=== PATIENT | female | born 1980 | race Caucasian/White ===

== ENCOUNTER 2019-10-24 10:35 | Emergency (ER) | payer OTHER, BC ==
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
[2019-10-24 14:33] VITALS: BP 129/81; PULSE 93
== END 2019-10-24 11:52 | disposition home or self-care (01) ==
LOC: VM.ED 10:35
DX: S80.11XA Contusion of right lower leg, initial encounter (principal); F41.9 Anxiety disorder, unspecified; F32.9 Major depressive disorder, single episode, unspecified; Z79.899 Other long term (current) drug therapy; Z88.8 Allergy status to other drugs, medicaments and biological substances; V89.2XXA Person injured in unspecified motor-vehicle accident, traffic, initial encounter
CPT/HCPCS: 73590-RT; 99284-25

== ENCOUNTER 2019-12-11 18:41 | Emergency (ER) | payer OTHER, BC ==
[2019-12-11 19:20] VITALS: BP 127/86; PULSE 91
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
== END 2019-12-11 20:00 | disposition home or self-care (01) ==
LOC: VM.ED 18:41
DX: S67.194A Crushing injury of right ring finger, initial encounter (principal); F41.9 Anxiety disorder, unspecified; F32.9 Major depressive disorder, single episode, unspecified; F17.210 Nicotine dependence, cigarettes, uncomplicated; Z88.8 Allergy status to other drugs, medicaments and biological substances; Z79.899 Other long term (current) drug therapy; V83.9XXA Unspecified occupant of special industrial vehicle injured in nontraffic accident, initial encounter
CPT/HCPCS: 73140-F8; 99283

== ENCOUNTER 2021-10-12 22:10 | Emergency (ER) | payer OTHER ==
[2021-10-12 23:01] VITALS: BP 137/97; PULSE 98
== END 2021-10-12 23:13 | disposition home or self-care (01) ==
LOC: VM.ED 22:10
DX: M62.830 Muscle spasm of back (principal); Z88.8 Allergy status to other drugs, medicaments and biological substances
CPT/HCPCS: 81000; 99284

== ENCOUNTER 2021-10-14 07:02 | Day surgery (SDC) | payer BC, OTHER ==
[~2021-10-14 07:02] MED LIST: Lactated Ringers 1,000 ML IV SCH
[2021-10-14] MEDS ORDERED: fentaNYL 100 MCG/2 ML SDV ONE (08:06)
[2021-10-14] MEDS ORDERED: Propofol 200 MG/20 ML SDV ONE ×2 (08:06→09:21)
[2021-10-14] MEDS ORDERED: Ondansetron 4 MG/2 ML SDV ONE (08:09)
[2021-10-14] MEDS ORDERED: Nalbuphine 10 MG/1 ML Vial IVPUSH PRN (09:41)
[2021-10-14 10:11] VITALS: BP 119/79; PULSE 67
[2021-12-03] MEDS ORDERED: Lactated Ringers 1,000 ML IV SCH (07:00)
== END 2021-10-14 10:50 | disposition home or self-care (01) ==
LOC: VM.SDS 07:02
PROVIDERS: ATTEND Family Medicine
DX: K64.8 Other hemorrhoids (principal); F41.8 Other specified anxiety disorders; F17.210 Nicotine dependence, cigarettes, uncomplicated; F10.20 Alcohol dependence, uncomplicated; E66.01 Morbid (severe) obesity due to excess calories; Z68.30 Body mass index [BMI] 30.0-30.9, adult; Z91.018 Allergy to other foods; Z91.048 Other nonmedicinal substance allergy status; Z98.890 Other specified postprocedural states; Z79.899 Other long term (current) drug therapy
CPT/HCPCS: 81025; J2405; J2704; J3010; J7120

== ENCOUNTER 2023-02-20 16:59 | Emergency (ER) | payer OTHER ==
[2023-02-20 17:37] VITALS: PULSE 88
[2023-02-20 18:53] VITALS: BP 134/87
== END 2023-02-20 18:25 | disposition home or self-care (01) ==
LOC: VM.ED 16:59
DX: S90.32XA Contusion of left foot, initial encounter (principal); F17.210 Nicotine dependence, cigarettes, uncomplicated; Z91.018 Allergy to other foods; Z88.8 Allergy status to other drugs, medicaments and biological substances; Z79.899 Other long term (current) drug therapy; W23.1XXA Caught, crushed, jammed, or pinched between stationary objects, initial encounter; Y92.89 Other specified places as the place of occurrence of the external cause; Y99.0 Civilian activity done for income or pay
CPT/HCPCS: 73630-LT; 99283

== ENCOUNTER 2023-04-13 02:35 | Observation (INO) | payer OTHER ==
[2023-04-13] MEDS ORDERED: Naloxone 0.4 MG/ML SDV IVPUSH PRN (02:55)
[2023-04-13] MEDS ORDERED: Sodium Chloride 0.9% 1,000 ML IV ONE ×2 (02:55→04:10)
[2023-04-13] MEDS ORDERED: Ondansetron 4 MG/2 ML SDV IVPUSH ONE (02:55)
[2023-04-13] MEDS ORDERED: HYDROmorphone 1 MG/ML Syringe IVPUSH ONE ×2 (02:55→03:27)
[2023-04-13 03:14] LABS: BASOPHILS ABSOLUTE AUTO 0.1 x10^3/uL (0.0-0.2); BASOPHILS PERCENT AUTO 0.4 % (0.2-1.2); EOSINOPHILS ABSOLUTE AUTO 0.1 x10^3/uL (0.0-0.5); EOSINOPHILS PERCENT AUTO 0.8 % (0.0-4.0); HEMATOCRIT 46.6 % (33.0-47.0); IMMATURE GRAN ABSOLUTE AUTO 0.01 x10^3/uL (0.00-0.07); LYMPHOCYTES ABSOLUTE AUTO 2.5 x10^3/uL (1.0-4.8); MEAN CORPUSCULAR HEMOGLOBIN 29.6 pg (26.0-32.0); MEAN CORPUSCULAR HGB CONC 34.3 g/dL (32.0-36.0); MEAN CORPUSCULAR VOLUME 86.3 fL (78.0-93.0); MONOCYTES ABSOLUTE AUTO 0.8 x10^3/uL (0.0-0.8); MONOCYTES PERCENT AUTO 6.2 % (2.0-11.0); NEUTROPHILS ABSOLUTE AUTO 9.6 x10^3/uL (1.8-7.7); NEUTROPHILS PERCENT AUTO 73.5 % (50.0-80.0); PLATELET COUNT,PLT 328 x10^3/uL (130-400)
[2023-04-13 03:17] LABS: APPEARANCE,URINE SLIGHTLY CLOUDY (CLEAR); BILIRUBIN,URINE NEGATIVE (NEGATIVE); COLOR,URINE YELLOW (YELLOW); GLUCOSE,URINE NEGATIVE (NEGATIVE); KETONES,URINE NEGATIVE (NEGATIVE); OCCULT BLOOD,URINE MODERATE (NEGATIVE); PH,URINE 5.5 (5.0-8.0); PROTEIN,URINE 30 mg/dL (NEGATIVE)
[2023-04-13 03:18] LABS: LEUKOCYTE ESTERASE,URINE TRACE (NEGATIVE); NITRITE,URINE NEGATIVE (NEGATIVE); UROBILINOGEN,URINE 0.2 EU/dL (0.2)
[2023-04-13 03:29] LABS: BACTERIA,URINE FEW /HPF (NOT SEEN); HYALINE CASTS,URINE RARE; MUCUS,URINE NOT SEEN /LPF (NOT SEEN); RBC,URINE 0-5 /HPF (NOT SEEN); SQUAMOUS EPITHELIAL CELLS,UR MODERATE /HPF (NOT SEEN); WBC,URINE 0-5 /HPF (NOT SEEN)
[2023-04-13 03:35] LABS: A/G RATIO 1.08; ALANINE AMINOTRANSFERASE,ALT 22 U/L (14-59); ALBUMIN 4.1 g/dL (3.4-5.0); ALKALINE PHOSPHATASE 112 U/L (46-116); ASPARTATE AMNIOTRANSFERASE,AST 13 U/L (15-37); BILIRUBIN TOTAL 0.4 mg/dL (0.2-1.0); BLOOD UREA NITROGEN,BUN 10 mg/dL (7-18); CARBON DIOXIDE,CO2 26 mmol/L (21-32); CHLORIDE,CL 103 mmol/L (98-107); CREATININE 0.8 mg/dL (0.55-1.02); GLUCOSE RANDOM 134 mg/dL (70-99); LIPASE 21 U/L (19-71); POTASSIUM,K 3.1 mmol/L (3.5-5.1); PROTEIN TOTAL,TP 7.9 g/dL (6.4-8.2); SODIUM,NA 142 mmol/L (136-145)
[2023-04-13 03:36] LABS: ANION GAP 16.1 mmol/L (5-15); C-REACTIVE PROTEIN < 0.50 mg/dL (<=0.50); ESTIMATED GFR 94 mL/min (>=60)
[2023-04-13] MEDS ORDERED: Ketorolac 30 MG/ML SDV IVPUSH ONE (03:51)
[2023-04-13] MEDS ORDERED: Acetaminophen 325 MG Tab PO PRN (05:06)
[2023-04-13] MEDS ORDERED: Sodium Chloride 0.9% 10 ML Syringe FLUSH PRN (05:06)
[2023-04-13] MEDS ORDERED: Sodium Chloride 0.9% 1,000 ML IV SCH (05:15)
[2023-04-13] MEDS ORDERED: HYDROmorphone 0.5 MG/0.5 ML Syringe IVPUSH PRN (05:30)
[2023-04-13] MEDS: Tamsulosin 0.4 MG Cap.ER PO SCH ×4 (06:07→09:23)
[2023-04-13] MEDS ORDERED: Ondansetron 4 MG/2 ML SDV IV PRN (07:00)
[2023-04-13] MEDS ORDERED: HYDROmorphone 1 MG/ML Syringe IVPUSH PRN (08:33)
[2023-04-13] MEDS ORDERED: Ketorolac 30 MG/ML SDV IVPUSH PRN (10:00)
[2023-04-13 10:10] VITALS: BP 131/86
[2023-04-13] MEDS ORDERED: Bisacodyl 10 MG Supp RECTAL ONE (11:00)
[2023-04-13] MEDS ORDERED: Nicotine 14 MG/24 Hr Patch TRDERM SCH (11:00)
[2023-04-13 12:54] VITALS: PULSE 88
== END 2023-04-13 12:45 | disposition home or self-care (01) ==
LOC: VM.ED 02:35 → VM.MS 04:54 → UNDOADMOB 04:54
PROVIDERS: ADMIT Physician Assistant Medical; ATTEND Physician Assistant Medical
DX: N20.0 Calculus of kidney (principal); F17.200 Nicotine dependence, unspecified, uncomplicated; Z79.899 Other long term (current) drug therapy
CPT/HCPCS: 74176; 80053; 81001; 83690; 85025; 86140; 87086; 96361; 96374; 96375; 96376; 99285-25; A9270-GY; G0378; J1170; J1885; J2405; J7030

== ENCOUNTER 2024-12-05 17:06 | Emergency (ER) | payer SELFPAY | END 2024-12-05 17:26 | disposition left against medical advice (07) | LOC: VM.ED 17:06 | DX: T63.441A Toxic effect of venom of bees, accidental (unintentional), initial encounter (principal); Z88.8 Allergy status to other drugs, medicaments and biological substances; Z91.018 Allergy to other foods; Z79.899 Other long term (current) drug therapy | CPT/HCPCS: 99282 ==